=== PATIENT | male | born 2000 | race African-American/Black ===

== ENCOUNTER 2024-04-26 12:53 | Outpatient (AMB) | payer OTHER, SELFPAY ==
[2024-04-26 12:54] VITALS: BP 96/64; PULSE 55; O2SAT 98; BMI 39.6
--- NOTE | 2024-04-26 12:54 | A.OFFPC_ITS ---
Vital Signs 04/26/24 12:54 Height 5 ft 10.5 in Weight 280 lb BMI 39.6 BP 96/64 Blood Pressure Location Lt brachial Position Sitting Pulse 55 Pulse Source Pulse Oximeter Pulse Oximetry (%) 98 Oxygen Delivery Method Room Air Intake Visit Reasons: Mental Health Intake Note: Pt is here today for PE. Pt states that he noticed blood in his stool few times. Allergies amoxicillin Adverse Reaction (Unknown, Verified 04/26/24 13:03) unknown Medication List - Last Reconciled 04/26/24 by Jaylyn Robison MD No Known Home Meds Tobacco use date assessed: 04/26/24 Dental Screening Dental Screen Date: 04/26/24 Did you have a dental visit in the last 12 months?: Yes Did you have a dental problem in the last 6 months where you did not have access to dental care?: No Was dental information given to patient?: Patient has dentist HPI HPI Comments History of Present Illness Details Pt presents for PE. He used to see a psychiatrist for chronic anxiety and depression but due to noncompliance was discharged from the practice about 8 months ago. Patient stopped taking his medications. He still follows up with a counselor. Patient denies suicidal ideation, change in his sleep pattern or appetite. [facility] Medical History Obese Annual physical exam Anxiety Surgical History No pertinent past surgical history Family History Mother No problems noted. Father No problems noted. Social History Household Members Other:: lives with mother, unemployed Housing: House Alcohol intake: current Patient Tobacco Use Status: Never used Tobacco e-Cigarette/Vaping Use: Currently Using service: No Current occupational status: employed Cognitive needs: No Hearing needs: No Vision needs: Yes Questionnaire PHQ-9 Over the last 2 weeks, how often have you been bothered by any of the following problems? 1. Little interest or pleasure in doing things: more than half the days 2. Feeling down, depressed, or hopeless: nearly every day 3. Trouble falling or staying asleep, or sleeping too much: more than half the days 4. Feeling tired or having little energy: nearly every day 5. Poor appetite or overeating: more than half the days 6. Feeling bad about yourself - or that you are a failure or have let yourself or your family down: more than half the days 7. Trouble concentrating on things, such as reading the newspaper or watching television: nearly every day 8. Moving or speaking so slowly that other people could have noticed. Or the opposite - being so fidgety or restless that you have been moving around a lot more than usual: more than half the days 9. Thoughts that you would be better off or of hurting yourself in some way: not at all Total score: 19 Depression Screening Interpretation: Positive (Patient is established with a counselor and will schedule a new appointment with the psychiatrist) Depression Screening Follow-up: Existing condition and In treatment Depression Screening Done: Yes Source: Developed by Drs. Rex Ferrari, Sagrario Day, Erik Kern and colleagues, with an educational carla from [employer]. Thrive Questionnaire Date Thrive assessed: 04/26/24 I am a: Patient What is your living situation today?: I have a steady place to live Within the past 12 months, did the food you bought not last and you didn't have the money to get more?: Never true Within the past 12 months, did you worry whether your food would run out before you got money to buy more?: Never true Do you have trouble paying for medicines?: No Do you have trouble getting transportation to medical appointments?: No Do you have trouble paying your heating and electricity bill?: No Do you have trouble taking care of your child, family member or friend?: No Do you have trouble with day-to-day activities such as bathing, preparing meals, shopping, managing finances, etc.?: No Are you currently unemployed and looking for a job?: Yes Are you interested in more education?: Yes Please select the resources that you would like help with: Job search/training and Education THRIVE Score: 0 AUDIT C Alcohol Use Questionnaire (AUDIT-C) 1. How often do you have a drink containing alcohol?: Monthly or less 2. How many drinks containing alcohol do you have on a typical day when you are drinking?: 1 or 2 3. How often do you have six or more drinks on one occasion?: Never Total Score: 1 SABRINA-7 AMB Questionnaire SABRINA-7 Date SABRINA - 7 assessed: 04/26/24 Feeling nervous, anxious, or on edge: 0 = Not at all Not being able to stop or control worryin = Not at all Worrying too much about different things: 0 = Not at all Trouble relaxin = Not at all Being so restless that it is hard to sit still: 0 = Not at all Becoming easily annoyed or irritable: 0 = Not at all Feeling afraid as if something awful might happen: 0 = Not at all Total SABRINA-7 score (0-4 normal; 5-9 mild; 10-14 moderate; 15-21 severe): 0 Source: Developed by Drs. Rex Ferrari, Sagrario Day, Erik Kern and colleagues, with an educational carla from [employer]. Review of Systems Const All systems reviewed & are unremarkable except as noted in HPI and below Reports no additional complaints Eyes Reports no additional complaints ENT Reports no additional complaints Card Reports no additional complaints Resp Reports no additional complaints GI Reports no additional complaints Reports no additional complaints Physical exam (Primary Care) Vital Signs: Last Vital Signs Pulse 55 04/26/24 12:54 BP 96/64 04/26/24 12:54 Pulse Ox 98 04/26/24 12:54 Oxygen Delivery Method Room Air 04/26/24 12:54 BMI result Body Mass Index 39.6 Tobacco/Smoking Status: Tobacco use Status Tobacco use date assessed 04/26/24 04/26/24 13:07 Patient Tobacco Use Status Never used Tobacco 04/26/24 13:07 e-Cigarette/Vaping Use Currently Using 04/26/24 13:07 Depression Screening Interpretation: Positive (Patient is established with a counselor and will schedule a new appointment with the psychiatrist) Depression Screening Follow-up: Existing condition and In treatment Const General: no acute distress HENMT Head: Yes normal to inspection Ears: hearing grossly normal bilaterally Face and sinus: Yes normal facial exam Mouth: Normal oral and palatal mucosa present Throat: Yes posterior oropharynx normal Eyes General: appearance normal, both eyes and all related structures Neck Neck: Yes no lymphadenopathy and Yes supple Resp Effort & Inspection: normal respiratory effort Auscultation: clear to auscultation bilaterally Cardio Rhythm: regular rhythm Heart sounds: S1 normal heart sound present and S2 normal heart sound present GI Inspection: Yes normal to inspection Palpation (GI): Soft to palpation Percussion: Yes normal to percussion Auscultation: normal bowel sounds Assessment and Plan Assessment & Plan (1) Annual physical exam: Code(s): Z00.00 - Encounter for general adult medical examination without abnormal findings Plan: Well-balanced diet regular physical activity weight loss discussed with the patient he will return for fasting blood work. Patient will schedule an appointment with the psychiatrist and will follow-up with a counselor Orders: Orders Comprehensive [place]. Panel Fast Today Z00.00 - Encounter for general adult medical examination without abnormal findings Complete Blood Count Auto Diff Today Z00.00 - Encounter for general adult med ical examination without abnormal findings UA w Microscopic Today Z00.00 - Encounter for general adult medical examination without abnormal findings CT NG by PCR Today Z00.00 - Encounter for general adult medical examination without abnormal findings Lipid Panel Today Z00.00 - Encounter for general adult medical examination without abnormal findings HIV Ab/Ag Today Z00.00 - Encounter for general adult medical examination without abnormal findings Syphilis Screen Today Z00.00 - Encounter for general adult medical examination without abnormal findings Coding Level of Care Code Est Pt Prev Care 18-39y(53207) Diagnoses Annual physical exam Z00.00
== END 2024-04-26 13:33 | disposition home or self-care (01) ==
PROVIDERS: PCP Internal Medicine; Visit Provider Internal Medicine
DX: Z00.00 Encounter for general adult medical examination without abnormal findings (principal)
CPT/HCPCS: 99395

== ENCOUNTER 2024-04-28 11:40 | Outpatient (REF) | payer OTHER, SELFPAY ==
[2024-04-28 13:28] LABS: Appearance Urine Clear; Color Urine Yellow; Glucose Urine UA Negative (Negative); Leukocyte Esterase Urine Negative (Negative); Nitrite Urine Negative (Negative); Specific Gravity - Urine 1.025 (1.005-1.025); Urine Blood Negative (Negative); Urine Ketones Negative (Negative); Urine Protein Negative (Neg-Trace)
[2024-04-28 13:31] LABS: Bacteria Urine None Seen (None Seen); Hyaline Casts Urine 0-2 /LPF (0-2); RBC Urine 0-2 /HPF (0-2); Squamous Epithelial Cell Urine 0-2 /HPF (0-2); WBC Urine 0-5 /HPF (0-5)
[2024-04-28 14:03] LABS: MANUAL DIFF FLAG NO
[2024-04-28 14:16] LABS: Basophils Percent Auto 0.5 % (0-2); Eosinophils Absolute Auto 0.1 X10*3/uL (0.0-0.4); Hematocrit 46.1 % (42.0-52.0); Imm Gran Abs Auto 0.03 X10*3/uL (0.00-0.03); Imm Gran Pct Auto 0.3 % (0.0-0.4); Lymphocytes Absolute Auto 2.6 X10*3/uL (1.2-4.9); Lymphocytes Percent Auto 29.5 % (20-40); Mean Corpuscular HGB Conc 32.5 g/dl (31.0-36.0); Mean Corpuscular Hemoglobin 27.4 pg (27.0-33.0); Mean Corpuscular Volume 84.1 fL (80.0-98.0); Mean Platelet Volume 12.3 fL (9.4-12.4); Monocytes Absolute Auto 0.5 X10*3/uL (0.1-1.2); Monocytes Percent Auto 6.3 % (2-11); Neutrophils Absolute Auto 5.4 x10*3/uL (2.0-8.3); Neutrophils Percent Auto 62.4 % (45-73); Platelet Count 228 X10*3/uL (160-400); Red Blood Count 5.48 X10*6/uL (4.60-5.80); Red Cell Distribution Width 13.8 % (11.0-16.0); White Blood Count 8.6 X10*3/uL (4.8-10.8)
[2024-04-28 14:28] LABS: Alanine Aminotransferase 17 U/L (0-40); Alkaline Phosphatase 80 U/L (39-117); Anion Gap 11 (12-20); Aspartate Amino Transferase 20 U/L (5-37); Bilirubin Total 0.9 mg/dL (0.0-1.0); Blood Urea Nitrogen 13 mg/dL (9-16); Calcium 8.9 mg/dL (8.4-10.2); Carbon Dioxide 23 mmol/L (22-29); Chloride 112 mmol/L (96-108); Cholesterol 206 mg/dL (<200); Estimated Glomerular Filt Rate > 60; Glucose Fasting 84 mg/dL (60-99); HDL Cholesterol 52 mg/dL (>40); LDL Cholesterol Calculated 135 mg/dL (<100); Potassium 3.9 mmol/L (3.3-5.1); Sodium 142 mmol/L (135-145); Total Protein 6.9 g/dL (6.5-8.0); Triglycerides 98 mg/dL (<150)
[2024-04-28 16:07] LABS: CT PCR NOT DETECTED (Not Detect.); NG PCR NOT DETECTED (Not Detect.)
[2024-04-29 08:06] LABS: Syphilis Screen Nonreactive (Nonreactive)
[2024-04-29 08:07] LABS: HIV AB/AG Nonreactive (Nonreactive); HIV Num 1 0.05 S/CO (0.00-0.99)
== END 2024-04-28 11:41 | disposition home or self-care (01) ==
LOC: HO.HMGCLDS 11:40
PROVIDERS: PCP Internal Medicine; Visit Provider Internal Medicine
DX: Z00.00 Encounter for general adult medical examination without abnormal findings (principal)
CPT/HCPCS: 80053; 80061; 81001; 85025; 86780; 87389; 87491; 87591

== ENCOUNTER 2024-07-14 08:40 | Outpatient (AMB) | payer OTHER, SELFPAY ==
--- NOTE | 2024-07-14 08:40 | A.OFFPC_ITS ---
Vital Signs 07/14/24 08:41 Height 5 ft 10.5 in Weight 278 lb BMI 39.3 BP 96/70 Blood Pressure Location Lt brachial Position Sitting Pulse 50 Pulse Source Pulse Oximeter Pulse Oximetry (%) 97 Oxygen Delivery Method Room Air Intake Visit Reasons: Follow up visit. Allergies amoxicillin Adverse Reaction (Unknown, Verified 07/14/24 08:44) unknown Medication List - Last Reconciled 07/14/24 by Jaylyn Robison MD No Known Home Meds Tobacco use date assessed: 07/14/24 Dental Screening Dental Screen Date: 04/26/24 HPI Follow up visit. HPI Details Pt presents for f/u anxiety and insomnia, depression. Patient used to see a psychiatrist and therapist and take sertraline for the depression but his mother reports the psychiatrist moved out of the area and patient ran out of his medication. He is getting reestablished with a counselor. Patient denies suicidal ideation but reports insomnia. he has been unemployed having difficulties finding a job. [facility] Medical History Obese Annual physical exam Anxiety Surgical History No pertinent past surgical history Family History Mother No problems noted. Father No problems noted. Social History Household Members Other:: lives with mother, unemployed Housing: House Alcohol intake: current Patient Tobacco Use Status: Never used Tobacco e-Cigarette/Vaping Use: Currently Using service: No Current occupational status: employed Cognitive needs: No Hearing needs: No Vision needs: Yes Questionnaire Thrive Questionnaire Date Thrive assessed: 04/26/24 SABRINA-7 AMB Questionnaire SABRINA-7 Date SABRINA - 7 assessed: 04/26/24 Source: Developed by Drs. Rex Ferrari, Sagrario Day, Erik Kern and colleagues, with an educational carla from [employer]. Review of Systems Const All systems reviewed & are unremarkable except as noted in HPI and below Eyes Reports no additional complaints ENT Reports no additional complaints Card Reports no additional complaints Resp Reports no additional complaints GI Reports no additional complaints Reports no additional complaints Physical exam (Primary Care) Vital Signs: Last Vital Signs Pulse 50 07/14/24 08:41 BP 96/70 07/14/24 08:41 Pulse Ox 97 07/14/24 08:41 Oxygen Delivery Method Room Air 07/14/24 08:41 BMI result Body Mass Index 39.3 Tobacco/Smoking Status: Tobacco use Status Tobacco use date assessed 07/14/24 07/14/24 08:49 Patient Tobacco Use Status Never used Tobacco 07/14/24 08:40 e-Cigarette/Vaping Use Currently Using 07/14/24 08:40 Thrive Assessment: Date of Thrive Assessment Date Thrive assessed 04/26/24 07/14/24 08:40 Const General: no acute distress HENMT Head: Yes normal to inspection Face and sinus: Yes normal facial exam Mouth: Normal oral and palatal mucosa present Throat: Yes posterior oropharynx normal Eyes General: appearance normal, both eyes and all related structures Neck Neck: Yes no lymphadenopathy and Yes supple Chest Chest palpation & inspection: normal inspection of the chest Breast/axilla inspection: normal inspection of the breasts Resp Effort & Inspection: normal respiratory effort Auscultation: clear to auscultation bilaterally Cardio Rhythm: regular rhythm Heart sounds: S1 normal heart sound present and S2 normal heart sound present GI Inspection: Yes normal to inspection Palpation (GI): Soft to palpation Percussion: Yes normal to percussion Auscultation: normal bowel sounds Assessment and Plan Assessment & Plan (1) Anxiety and depression: Code(s): F41.9 - Anxiety disorder, unspecified; F32.A - Depression, unspecified Plan: Patient will be restarted back on sertraline 50 mg and follow-up with a counselor and get established with a psychiatrist in the area Medications: New sertraline 50 mg PO DAILY 90 tabs 1RF Coding Level of Care Code Est Pt Level 3 (84333) Diagnoses Anxiety and depression F41.9; F32.A
[2024-07-14 08:41] VITALS: BP 96/70; PULSE 50; O2SAT 97; BMI 39.3
== END 2024-07-14 09:37 | disposition home or self-care (01) ==
PROVIDERS: PCP Internal Medicine; Visit Provider Internal Medicine
DX: F41.9 Anxiety disorder, unspecified (principal); F32.A Depression, unspecified
CPT/HCPCS: 99213

== ENCOUNTER 2025-02-17 14:57 | Outpatient (AMB) | payer OTHER, SELFPAY ==
--- NOTE | 2025-02-17 15:05 | AM.OFFWIN_ITS ---
Intake Vital Signs 3 02/17/25 15:06 Height 5 ft 10.5 in Weight 276 lb BMI 39.0 BP 104/70 Blood Pressure Location Lt brachial Position Sitting Respiration 16 Pulse 97 Pulse Source Pulse Oximeter Temp 98.8 F Temp Source Oral Pulse Oximetry (%) 98 Oxygen Delivery Method Room Air Intake Visit Reasons: EP fall, lump on buttocks Intake Note: Pt is here today says he took a fall last Thursday and landed on his Lt side of buttocks has a lump Patient Tobacco Use Status: Never used Tobacco Allergies amoxicillin Adverse Reaction (Unknown, Verified 02/17/25 15:09) unknown HPI HPI Comments 2 History of Present Illness0 Details 24 y/o Male patient who presents to the walk in clinic with c/o Right Buttock pain after a Fall Thursday. Pt reports falling down a flight stairs at home and landed on his Buttocks on concrete floor. Reports Pain with sitting and walking up the stairs. He has been using Ice and NSAIDs for pain relief. Pt denies any Fevers, chills, nausea or vomiting. [facility] Medical History (Updated 02/17/25 @ 15:48 by Albertina Guido NP) Left buttock abscess Contusion of left buttock Obese Annual physical exam Anxiety Surgical History No pertinent past surgical history Family History Mother No problems noted. Father No problems noted. Social History Household Members Other:: lives with mother, unemployed Housing: House Alcohol intake: current Patient Tobacco Use Status: Never used Tobacco e-Cigarette/Vaping Use: Currently Using service: No Current occupational status: employed Cognitive needs: No Hearing needs: No Vision needs: Yes Review of Systems Const All systems reviewed & are unremarkable except as noted in HPI and below Physical Exam Vital Signs: Last Vital Signs Temp 98.8 F 02/17/25 15:06 Pulse 97 02/17/25 15:06 Resp 16 02/17/25 15:06 BP 104/70 02/17/25 15:06 Pulse Ox 98 02/17/25 15:06 Oxygen Delivery Method Room Air 02/17/25 15:06 BMI result Body Mass Index 39.0 Const General: no acute distress; No comfortable Nutritional Appearance: obese morbidly obese Orientation/consciousness: patient oriented x3 Back/Spine/Pelvis Sacrum: tenderness on the left Coccyx: Coccyx tenderness present on direct palpation Back/spine/pelvis image: 2 1. Large Abscess left Buttock cheek, TTP, with swollen and indurated, center with yellowish Hue. Neuro General: patient oriented x3, gait normal and moves all extremities Psych Speech and movement: Normal speech and movement present Assessment & Plan Assessment & Plan (1) Contusion of left buttock: Code(s): S30.0XXA - Contusion of lower back and pelvis, initial encounter Plan: Ordered Xray to R/O Fracture. (2) Left buttock abscess: Code(s): L02.31 - Cutaneous abscess of buttock Plan: After further examination, Pt has Large indurated Abscess left Buttock. Ordered Oral Abx Advised Patient to Apply heat and Warm compress to promote easy abscess drainage. Educated on Red flag signs to report to ED. Orders: Orders 2 XR sacrum coccyx min 2V Today S30.0XXA - Contusion of lower back and pelvis, initial encounter Medications: New 2 sulfamethoxazole-trimethoprim 800-160 mg (Bactrim DS) 1 tab PO Q12H 10 tabs 0RF 5 days L02.31 - Cutaneous abscess of buttock doxycycline hyclate 100 mg PO BID 20 caps 0RF 10 days L02.31 - Cutaneous abscess of buttock Coding Level of Care Code Est Pt Level 4 (08406) Diagnoses Contusion of left buttock S30.0XXA Left buttock abscess L02.31 Time Spent (min) 20
--- OUTSIDE RECORDS SUMMARY | 2025-02-17 15:05 | XMS_ITS | Data Portability ---
Author Organization [place] - [facility], Allergy Address [address] [place] [phone] Care Team Providers Care Automobile Salesman Name Role Phone PATRIC ROTHMAN Primary Care Provider Assessment Encounter Date Assessment Date Assessment LastModified by Organization Details LastModified Time 08/31/2024 08/31/2024 23-year-old male presents for cerumen removal. Cerumen impaction removed bilaterally. Bilateral TMs are intact. Follow-up in 6 months for routine debridement. [email or web address] Not available 08/31/2024 15:59:27 01/23/2025 01/23/2025 24-year-old male presents for cerumen removal. Cerumen impaction removed bilaterally. Bilateral TMs are intact. Follow-up in 3 months for routine debridement. [email or web address] Not available 01/23/2025 12:07:57 Plan of Treatment Reminders Order Date Submit Date Provider Last Modified By Organization Details Last Modified Time Details Appointments Establish ed 15 2024 11:15A M ADRIANO MALIK PA-C Not available Not available Not available Lab None recorded. Referral None recorded. Procedures None recorded. Surgeries None recorded. Imaging None recorded. Medication Orders None recorded. Patient TargetsNo targets recorded. Patient InstructionsNo instructions recorded. Reason for Referral None Reported. Problems Name Problem SNOMED Code Status Onset Date Resolution Date Notes Provider Name and Address Organization Details Recorded Time Obesity 723108907 Active 2017 Obesity NOS; Note: Date Diagnosed : 03/26/2018 2:12 PM (E66.9) Not Available [facility] Conductiv e hearing loss, bilateral 148101116 Active 2017 Conductiv e hearing loss, bilateral ; Note: Date Diagnosed : 01/25/2018 12:07 PM (H90.0) Not Available [facility] 03:03:49 Allergic rhinitis 87681802 Active 2016 Other allergic rhinitis; Note: Date Diagnosed : 04/03/2017 2:16 PM (J30.89) Not Available [facility] 03:03:48 Abnormal auditory perceptio n 83111957 Active 2017 Other abnormal auditory perceptio ns, left ear; Note: Date Diagnosed : 12/21/2017 3:40 PM (H93.292) Not Available [facility] 03:03:50 Acute serous otitis media of bilateral ears 47534603583 14687 Active 2017 Acute serous otitis media, bilateral ; Note: Date Diagnosed : 01/25/2018 12:07 PM (H65.03) Not Available [facility] 4 03:03:49 Snoring 50085609 Active 2017 Snoring; Note: Date Diagnosed : 03/26/2018 2:12 PM (R06.83) Not Available [facility] 03:03:49 Impacted cerumen 52754374 Active 2014 Impacted cerumen; Note: Date Diagnosed : 03/05/2015 11:05 AM (380.4) Not Available [facility] 03:03:50 Tinnitus of left ear 95828539641 06 Active 2017 Tinnitus, left ear; Note: Date Diagnosed : 12/21/2017 3:40 PM (H93.12) Not Available [facility] 4 03:03:50 Impacted cerumen of bilateral ears 61102342818 10889 Active 2017 Impacted cerumen, bilateral ; Note: Date Diagnosed : 06/21/2018 3:07 PM (H61.23) Impacte d cerumen, bilateral ; Note: Date Diagnosed : 04/03/2017 2:16 PM (H61.23) ; Start Date : 7 Impacte d cerumen, bilateral ; Note: Date Diagnosed : 5 3:29 PM (H61.23) ; Start Date : 5 Not Available [facility] 4 03:03:51 Fatigue 59477859 Active 2017 Fatigue NOS; Note: Date Diagnosed : 03/26/2018 2:12 PM (R53.83) Not Available [facility] 4 03:03:49 Problem Notes None recorded. Procedures Surgical History Date Name Laterality Status Provider Name and Address Organization Details Recorded Time 5 Cerumen removal without microscope bilat completed ADRIANO MALIK PA-C [address] [place] [address],[address], [phone], [facility] 01/23/2025 11:23:23 4 Cerumen removal without microscope bilat completed ADRIANO MALIK PA-C [address] [place] [address],[address], [phone], [facility] 08/31/2024 15:40:46 Imaging Results None recorded. Procedure Notes None recorded. Medical Equipment None Reported. Allergies Allergen ID Allergen Name Allergen Category Reaction Reaction Severity Criticality Documentation Date Start Date Code Code System Note Provider Name and Address Organization Details Recorded Time 027520 amoxicill in medicatio n other Not available Not available 03/15/2024 723 RxNorm React ion: unkno wn, unspe cifie d;; Not Available [facility] 4 01:20:37 Medications Name Sig Start Date Stop Date Status Note LastModified by Organization Details LastModified Time fluoxetin e 40 mg capsule active Medicati on ID: [id number] B rand Name: fluoxeti ne Send Method: E-Prescr ibed Sub s Allowed: subs OK Medic ationGen ericName : fluoxeti ne Not Available Not Available Not Available buspirone 5 mg tablet 04/25 completed Medicati on ID: [id number] D uration Value: 30 Brand Name: buspiron e Send Method: E-Prescr ibed Sub s Allowed: subs OK Speci al Instruct ion: TK 1 T PO BID HS FOR 1 WEEK. INCREASE TO 2 TIMES A DAY MORNING AND ABHISHEK Medi cationGe nericNam e: buspiron e Not Available Not Available Not Available clonidine HCl 0.1 mg tablet 04/25 completed Medicati on ID: [id number] D uration Value: 30 Brand Name: clonidin e HCl Send Method: E-Prescr ibed Sub s Allowed: subs OK Speci al Instruct ion: TK 1 T PO Q NIGHT Me dication GenericN trish: clonidin e HCl Not Available Not Available Not Available acetamino phen 325 mg tablet TAKE 2 TABLET BY MOUTH EVERY 6 HOURS,FO R 14 DAYS, NEEDED FOR PAIN active Not Available Not Available No t Available doxycycli ne hyclate 100 mg capsule TAKE 1 CAPSULE BY MOUTH TWICE A DAY FOR 7 DAYS active Not Available Not Available No t Available meloxicam 15 mg tablet TAKE 1 TABLET BY MOUTH EVERY DAY FOR 14 DAYS active Not Available Not Available No t Available sertralin e 100 mg tablet 03/12 completed Medicati on ID: [id number] D uration Value: 30 Reason: () Brand Name: sertrali ne Send Method: E-Prescr ibed Sub s Allowed: subs OK Speci al Instruct ion: TK 2 TS PO D Medica tionGene ricName: sertrali ne Not Available Not Available Not Available SF 1.1 % dental gel 04/25 completed Medicati on ID: [id number] D uration Value: 12 Brand Name: SF Send Method: E-Prescr ibed Sub s Allowed: subs OK Speci al Instruct ion: BRUSH TEETH QHS AFTER USING REGULAR TOOTHPAS TE THEN SPIT Med icationG enericNa me: SF Not Available Not Available Not Available clonidine HCl 0.2 mg tablet active Medicati on ID: [id number] B rand Name: clonidin e HCl Send Method: E-Prescr ibed Sub s Allowed: subs OK Medic ationGen ericName : clonidin e HCl Not Available Not Available Not Available trazodone 100 mg tablet active Medicati on ID: [id number] B rand Name: trazodon e Send Method: E-Prescr ibed Sub s Allowed: subs OK Medic ationGen ericName : trazodon e Not Available Not Available Not Available cephalexi n 500 mg capsule TAKE 1 CAPSULE BY MOUTH 4 TIMES A DAY FOR 5 DAYS active Not Available Not Available No t Available cephalexi n 250 mg/5 mL oral suspensio n 03/12 completed Medicati on ID: [id number] D uration Value: 10 Reason: () Brand Name: cephalex in Send Method: E-Prescr ibed Sub s Allowed: subs OK Speci al Instruct ion: TK 5ML PO QID Medi cationGe nericNam e: cephalex in Not Available Not Available Not Available buspirone 10 mg tablet active Medicati on ID: [id number] B rand Name: buspiron e Send Method: E-Prescr ibed Sub s Allowed: subs OK Medic ationGen ericName : buspiron e Not Available Not Available Not Available fluoxetin e 10 mg capsule active Medicati on ID: [id number] B rand Name: fluoxeti ne Send Method: E-Prescr ibed Sub s Allowed: subs OK Medic ationGen ericName : fluoxeti ne Not Available Not Available Not Available hydroxyzi ne HCl 25 mg tablet active Medicati on ID: [id number] B rand Name: hydroxyz ine HCl Send Method: E-Prescr ibed Sub s Allowed: subs OK Medic ationGen ericName : hydroxyz ine HCl Not Available Not Available Not Available ibuprofen 100 mg/5 mL oral suspensio n 06/21 completed Medicati on ID: [id number] D uration Value: 6 Reason: () Brand Name: ibuprofe n Send Method: E-Prescr ibed Sub s Allowed: subs OK Medic ationGen ericName : ibuprofe n Not Available Not Available Not Available fluoxetin e 20 mg capsule 04/25 completed Medicati on ID: [id number] D uration Value: 30 Brand Name: fluoxeti ne Send Method: E-Prescr ibed Sub s Allowed: subs OK Speci al Instruct ion: TK 1 C PO QAM Medi cationGe nericNam e: fluoxeti ne Not Available Not Available Not Available sertralin e 50 mg tablet TAKE 1 TABLET BY MOUTH EVERY DAY active Not Available Not Available No t Available loratadin e 10 mg tablet Take 1 tablet by mouth once a day 2022 active Medicati on ID: [id number] D uration Value: 30 Brand Name: loratadi ne Send Method: E-Prescr ibed Sub s Allowed: subs OK Medic ationGen ericName : loratadi ne Not Available Not Available Not Available oxycodone 5 mg tablet TAKE 1 TABLET BY MOUTH EVERY 6 HOURS NEEDED FOR PAIN active Not Available Not Available No t Available hydroxyzi ne pamoate 25 mg capsule 03/12 completed Medicati on ID: [id number] D uration Value: 7 Reason: () Brand Name: hydroxyz ine pamoate Send Method: E-Prescr ibed Sub s Allowed: subs OK Speci al Instruct ion: TK 1 TO 2 CS PO UP TO QID PRA Medi cationGe nericNam e: hydroxyz ine pamoate Not Available Not Available Not Available ProAir HFA 90 mcg/actua tion aerosol inhaler 04/25 completed Medicati on ID: [id number] D uration Value: 16 Brand Name: ProAir HFA Send Method: E-Prescr ibed Sub s Allowed: subs OK Speci al Instruct ion: INHALE 2 PUFFS PO Q 4 H PRN Medi cationGe nericNam e: ProAir HFA Not Available Not Available Not Available cetirizin e 1 mg/mL oral solution 06/21 completed Medicati on ID: [id number] D uration Value: 12 Reason: () Brand Name: cetirizi ne Send Method: E-Prescr ibed Sub s Allowed: subs OK Karoli al Instruct ion: TK 10 ML PO QD Medic ationGen ericName : cetirizi ne Not Available Not Available Not Available Flonase Allergy Relief 50 mcg/actua tion nasal spray,michael pension [place] 2 spray into both nostrils once a day 2022 active Medicati on ID: [id number] D uration Value: 30 Brand Name: Flonase Allergy Relief S end Method: E-Prescr ibed Sub s Allowed: subs OK Medic ationGen ericName : Flonase Allergy Relief Not Available Not Available Not Available Vitals Date Recorded Body height Body mass index (BMI) Body weight Provider Name and Address Organization Details Last Updated DateTime 08/31/2024 177.8 cm 40.2 kg/m2 404824.86 g Bree Gerardo [place] - [facility] 08/31/2024 15:45:26 Social History None recorded. Functional Status None recorded. Mental Status None recorded. Family History Nothing Reported. Medical History No medical history recorded. Past Encounters Encounter ID Performer Location Encounter Start Date Encounter Closed Date Diagnosis/Indication Diagnosis SNOMED-CT Code Diagnosis ICD10 Code Diagnosis Note [id number] SIMIN KULKARNI MD [facility] [address] [phone] 08/31/2024 15:35:26 08/31/2024 15:54:50 Impacted cerumen of bilateral ears 8392305848 658440 H61.23 [id number] ROSA ELENA BLACK MD [facility] [address] [address] 01/23/2025 11:21:20 01/23/2025 11:57:23 Impacted cerumen of bilateral ears 6404995772 651645 H61.23 Health Concerns Section Related Observation LastModified by Organization Detai ls LastModified Time None Recorded Concern Status LastModified by Organization Details LastModified Time None Recorded Advance Directives Directive None Recorded Payers Encounter Date Sequence Insurance Name Policy Number Policy Crabtree Covered Member ID Crabtree Member ID Guarantor Name 08/31/2024 1 [facility] (MEDICAID HMO) JOESPH Zamarripa [id number] Bertrand Zamarripa 01/23/2025 1 [facility] PLAN (MEDICAID HMO) JOESPH Zamarripa [id number] Bertrand Zamarripa Notes Date Note Type Note Provider Name and Address Organization Details Recorded Time 08/31/2024 text/html 23-year-old male presents for cerumen removal. No concerns today. SIMIN KYLE MD [address] [place] [address], [phone], [facility] 08/31/2024 16:04:29 01/23/2025 text/html 24-year-old male presents for cerumen removal. No concerns today. ROSA ELENA BLACK MD [address] [place] [address], [phone], [facility] 01/25/2025 08:21:51
[2025-02-17 15:06] VITALS: BP 104/70; PULSE 97; RESP 16; TEMP 37.1; O2SAT 98; BMI 39.0
== END 2025-02-17 15:49 | disposition home or self-care (01) ==
PROVIDERS: PCP Internal Medicine; Visit Provider Nurse Practitioner Family
DX: S30.0XXA Contusion of lower back and pelvis, initial encounter (principal); L02.31 Cutaneous abscess of buttock

== ENCOUNTER 2025-02-17 14:57 | Outpatient (REF) | payer OTHER, SELFPAY ==
--- NOTE | ~2025-02-17 | XR_ITS ---
EXAMINATION: XR SACRUM AND COCCYX CLINICAL INFORMATION: S30.0XXA - Contusion of lower back and pelvis, initial encounter COMPARISON: None available. TECHNIQUE: 2 views of the sacrum and 2 views of the coccyx were obtained. FINDINGS: There are no fractures. No bone, joint or soft tissue abnormality is demonstrated. XR/XR sacrum coccyx min 2V IMPRESSION: Normal-appearing sacrum and coccyx. Electronically signed by: Leonardo Huitron MD 02/17/2025 03:40 PM EDT
== END 2025-02-17 14:58 | disposition home or self-care (01) ==
LOC: HO.HMGCX 14:57
PROVIDERS: PCP Internal Medicine; Visit Provider Nurse Practitioner Family
DX: S30.0XXA Contusion of lower back and pelvis, initial encounter (principal); L02.31 Cutaneous abscess of buttock
CPT/HCPCS: 72220; 99212

== ENCOUNTER → 2025-02-17 15:26 | Outpatient (BNV) | payer OTHER, SELFPAY | PROVIDERS: PCP Internal Medicine; Visit Provider Radiology Diagnostic Radiology | DX: S30.0XXA Contusion of lower back and pelvis, initial encounter (principal) | CPT/HCPCS: 72220 ==